=== PATIENT | male | born 1935 | race Caucasian/White ===

== ENCOUNTER 2019-11-07 10:45 | Emergency (ER) | payer OTHER ==
[~2019-11-07] VITALS: Ht 182.9 cm; Wt 68.0 kg
[~2019-11-07 10:45] MED LIST: ALTACE10 M1; CARDIZEM90 MG; CORGARD80 MG; COUMADIN7.5 MG; ZOCOR40 MG
[2019-11-07] MEDS ORDERED: SYNTHROID88 MCG PO (11:17)
[2019-11-07] MEDS ORDERED: UROXATRAL10 MG PO (11:17)
[2019-11-07] MEDS ORDERED: PROSCAR5 MG (11:17)
== END 2019-11-07 15:03 | disposition home or self-care (01) ==
LOC: ER 10:45
DX: S05.11XA Contusion of eyeball and orbital tissues, right eye, initial encounter (principal); W18.09XA Striking against other object with subsequent fall, initial encounter; Y93.89 Activity, other specified; Y92.018 Other place in single-family (private) house as the place of occurrence of the external cause; Y99.8 Other external cause status

== ENCOUNTER 2019-12-27 09:26 | Outpatient (CLI) | payer OTHER ==
[~2019-12-27 09:26] MED LIST changes: +PROSCAR5 MG; +SYNTHROID88 MCG PO; +UROXATRAL10 MG PO
== END 2019-12-27 09:34 | disposition home or self-care (01) ==
LOC: LAB 09:26
DX: I48.19 Other persistent atrial fibrillation (principal)

== ENCOUNTER 2020-01-05 08:03 | Outpatient (CLI) | payer OTHER | END 2020-01-05 08:12 | disposition home or self-care (01) | LOC: LAB 08:03 | DX: I48.0 Paroxysmal atrial fibrillation (principal) ==

== ENCOUNTER 2020-01-25 13:39 | Outpatient (CLI) | payer OTHER | END 2020-01-25 13:42 | disposition home or self-care (01) | LOC: LAB 13:39 | DX: I48.19 Other persistent atrial fibrillation (principal) ==

== ENCOUNTER → 2020-03-11 07:53 | Outpatient (CLI) | payer OTHER | END | disposition home or self-care (01) | LOC: LAB 07:53 | PROVIDERS: ATTEND Internal Medicine Cardiovascular Disease | DX: I48.19 Other persistent atrial fibrillation (principal) ==

== ENCOUNTER 2020-03-15 13:29 | Outpatient (CLI) | payer OTHER | END 2020-03-15 15:00 | disposition home or self-care (01) | LOC: LAB 13:29 | PROVIDERS: ATTEND Internal Medicine Cardiovascular Disease | DX: I48.0 Paroxysmal atrial fibrillation (principal) ==

== ENCOUNTER 2020-04-19 07:34 | Outpatient (CLI) | payer OTHER | END 2020-04-19 07:43 | disposition home or self-care (01) | LOC: NUCLEAR 07:34 | PROVIDERS: ATTEND Radiology Radiation Oncology | DX: C00.1 Malignant neoplasm of external lower lip (principal) | CPT/HCPCS: 78815; A9552 ==

== ENCOUNTER 2021-03-17 09:37 | Emergency (ER) | payer OTHER ==
[~2021-03-17] VITALS: Ht 182.9 cm; Wt 65.8 kg
[2021-03-17] MEDS ORDERED: MEDI-MECLIZINE25 MG PO (14:25)
[2021-03-22] MEDS ORDERED: TAMS0.4C (17:22)
== END 2021-03-17 14:34 | disposition home or self-care (01) ==
LOC: ER 09:37
DX: R42 Dizziness and giddiness (principal); R53.1 Weakness

== ENCOUNTER → 2021-03-22 | Emergency (ER) | payer OTHER ==
[~2021-03-22] VITALS: Ht 182.9 cm; Wt 65.8 kg
[~2021-03-22] MED LIST changes: +MEDI-MECLIZINE25 MG PO; +TAMS0.4C
== END | disposition home or self-care (01) ==
LOC: ER 17:00 → CPU-OBS 17:05
DX: I48.91 Unspecified atrial fibrillation (principal); R42 Dizziness and giddiness
CPT/HCPCS: G0378; G0379; 93005

== ENCOUNTER 2021-05-28 06:05 | Day surgery (SDC) | payer OTHER ==
[~2021-05-28 06:05] MED LIST changes: +COUMADIN PO; +DETROL2 MG PO; +LEVOXYL100 MCG PO; +PROSCAR5 MG PO; +[UNRECOGNIZED DRUG - OTHER] PO
== END 2021-05-28 20:00 | disposition home or self-care (01) ==
LOC: CIR.AMB 06:05
PROVIDERS: ATTEND Specialist
DX: K40.91 Unilateral inguinal hernia, without obstruction or gangrene, recurrent (principal); Z20.822 Contact with and (suspected) exposure to COVID-19

== ENCOUNTER 2021-06-09 09:11 | Emergency (ER) | payer OTHER ==
[~2021-06-09] VITALS: Ht 182.9 cm; Wt 66.2 kg
[2021-06-09] MEDS ORDERED: CARDIZEM60 MG PO (09:29)
== END 2021-06-09 13:26 | disposition home or self-care (01) ==
LOC: ER 09:11
DX: B34.9 Viral infection, unspecified (principal); Z03.818 Encounter for observation for suspected exposure to other biological agents ruled out

== ENCOUNTER 2022-01-03 09:16 | Emergency (ER) | payer OTHER ==
[~2022-01-03] VITALS: Ht 182.9 cm; Wt 68.0 kg
[~2022-01-03 09:16] MED LIST changes: +CARDIZEM60 MG PO
== END 2022-01-03 11:23 | disposition home or self-care (01) ==
LOC: ER 09:16
DX: H60.02 Abscess of left external ear (principal); I10 Essential (primary) hypertension

== ENCOUNTER 2022-01-17 16:22 | Emergency (ER) | payer OTHER ==
[~2022-01-17] VITALS: Ht 182.9 cm; Wt 68.0 kg
[2022-01-17] MEDS ORDERED: JANTOVEN6 MG (17:07)
[2022-01-17] MEDS ORDERED: AMOX1TAB5 (17:08)
== END 2022-01-17 18:48 | disposition home or self-care (01) ==
LOC: ER 16:22
DX: H66.92 Otitis media, unspecified, left ear (principal)

== ENCOUNTER 2022-01-21 13:59 | Emergency (ER) | payer OTHER ==
[~2022-01-21] VITALS: Ht 182.9 cm; Wt 68.0 kg
[~2022-01-21 13:59] MED LIST changes: +AMOX1TAB5; +JANTOVEN6 MG
[2022-01-21] MEDS ORDERED: CEFUROXIME250 MG PO (14:19)
== END 2022-01-21 16:58 | disposition home or self-care (01) ==
LOC: ER 13:59
DX: H60.92 Unspecified otitis externa, left ear (principal)

== ENCOUNTER 2022-01-22 16:04 | Emergency (ER) | payer OTHER ==
[~2022-01-22] VITALS: Ht 175.3 cm; Wt 63.5 kg
[~2022-01-22 16:04] MED LIST changes: +CEFUROXIME250 MG PO
== END 2022-01-22 19:28 | disposition home or self-care (01) ==
LOC: ER 16:04
DX: R42 Dizziness and giddiness (principal); H66.92 Otitis media, unspecified, left ear

== ENCOUNTER 2022-06-02 13:38 | Emergency (ER) | payer OTHER ==
[~2022-06-02] VITALS: Ht 182.9 cm; Wt 68.0 kg
== END 2022-06-02 16:38 | disposition home or self-care (01) ==
LOC: ER 13:38
DX: U07.1 COVID-19 (principal); I10 Essential (primary) hypertension

== ENCOUNTER 2023-03-24 11:53 | Outpatient (CLI) | payer OTHER | END 2023-03-24 11:59 | disposition home or self-care (01) | LOC: RAD 11:53 | DX: M25.552 Pain in left hip (principal) ==

== ENCOUNTER 2023-05-16 08:34 | Outpatient (CLI) | payer OTHER | END 2023-05-16 08:41 | disposition home or self-care (01) | LOC: RAD 08:34 | PROVIDERS: ATTEND Ophthalmology | DX: Z98.41 Cataract extraction status, right eye (principal); H25.011 Cortical age-related cataract, right eye ==

== ENCOUNTER 2023-05-16 09:41 | Outpatient (CLI) | payer OTHER | END 2023-05-16 09:44 | disposition home or self-care (01) | LOC: LAB 09:41 | PROVIDERS: ATTEND Ophthalmology | DX: D68.8 Other specified coagulation defects (principal); H25.011 Cortical age-related cataract, right eye ==

== ENCOUNTER 2023-06-09 14:20 | Emergency (ER) | payer OTHER ==
[~2023-06-09] VITALS: Ht 172.7 cm; Wt 99.8 kg
== END 2023-06-09 19:06 | disposition home or self-care (01) ==
LOC: ER 14:20
DX: S00.93XA Contusion of unspecified part of head, initial encounter (principal); W18.30XA Fall on same level, unspecified, initial encounter; Y93.9 Activity, unspecified; Y92.89 Other specified places as the place of occurrence of the external cause; Y99.9 Unspecified external cause status; E11.9 Type 2 diabetes mellitus without complications; Z79.84 Long term (current) use of oral hypoglycemic drugs; E03.9 Hypothyroidism, unspecified; I10 Essential (primary) hypertension

== ENCOUNTER 2023-10-19 13:29 | Emergency (ER) | payer OTHER ==
[~2023-10-19] VITALS: Ht 182.9 cm; Wt 59.0 kg
[2023-10-19] MEDS ORDERED: CARDIZEM60 MG PO (14:16)
[2023-10-19] MEDS ORDERED: WARFARIN SODIU7.5 MG PO (14:17)
[2023-10-19 17:06] LABS: ERYTHROCYTE SEDIMENTATION RATE 30 mm/hr
[2023-10-19 17:08] LABS: HEMATOCRIT 36.4 % (39.0-48.0); HEMOGLOBIN 12.4 g/dL (13-16.00); MEAN CELL VOLUME 88.8 fL (80.0-100.00); MEAN CORPUSCULAR HEMOGLOBIN 30.3 pg (27.00-32.0); MEAN CORPUSCULAR HGB CONC 34.1 g/dl (32.0-36.0); PLATELET COUNT 299 K/uL (150-450); RED CELL DISTRIBUTION WIDTH 14.3 % (11.5-14.5)
[2023-10-19 17:26] LABS: CALCIUM 9.9 mg/dL (8.5-10.1); CREATININE SERUM 0.84 mg/dL (0.70-1.30); GFR 86.23; POTASSIUM 4.02 mEq/L (3.5-5.1)
[2023-10-19 17:37] LABS: D DIMER 0.61 MG/L; PARTIAL THROMBOPLASTIN TIME 37.6 SECONDS (22.0-34.0)
[2023-10-19 17:38] LABS: C-REACTIVE PROTEIN 0.45 MG/DL (0.00-0.29)
[2023-10-19 17:40] LABS: INR 1.73
[2023-10-19 17:43] LABS: PROTHROMBIN TIME 17.4 SECONDS (9.0-11.5)
[2023-10-20] MEDS ORDERED: KEFLEX PO (07:46)
== END 2023-10-19 19:25 | disposition home or self-care (01) ==
LOC: ER 13:30
PROVIDERS: General Practice
DX: L03.116 Cellulitis of left lower limb (principal); L97.829 Non-pressure chronic ulcer of other part of left lower leg with unspecified severity
CPT/HCPCS: 36415; 96365; 99284; J3370

== ENCOUNTER 2023-10-20 07:17 | Emergency (ER) | payer OTHER ==
[~2023-10-20] VITALS: Ht 182.9 cm; Wt 61.2 kg
[~2023-10-20 07:17] MED LIST changes: +WARFARIN SODIU7.5 MG PO
[2023-10-20] MEDS ORDERED: KEFLEX PO (07:46)
== END 2023-10-20 14:51 | disposition home or self-care (01) ==
LOC: ER 07:17
DX: L03.116 Cellulitis of left lower limb (principal); R60.0 Localized edema; E03.9 Hypothyroidism, unspecified; I49.9 Cardiac arrhythmia, unspecified

== ENCOUNTER 2023-11-06 16:46 | Emergency (ER) | payer OTHER ==
[~2023-11-06] VITALS: Ht 182.9 cm; Wt 63.5 kg
[~2023-11-06 16:46] MED LIST changes: +KEFLEX PO
[2023-11-06] MEDS ORDERED: LEVOXYL100 MCG (17:24)
[2023-11-06] MEDS ORDERED: KETOROLAC TROMETHAMINE 30 MG VIAL IM ONE (22:15)
[2023-11-06 23:21] LABS: HEMATOCRIT 39.6 % (39.0-48.0); HEMOGLOBIN 13.1 g/dL (13-16.00); MEAN CELL VOLUME 89.1 fL (80.0-100.00); MEAN CORPUSCULAR HEMOGLOBIN 29.5 pg (27.00-32.0); MEAN CORPUSCULAR HGB CONC 33.1 g/dl (32.0-36.0); PLATELET COUNT 338 K/uL (150-450); RED BLOOD COUNT 4.45 M/uL (4.00-6.00); RED CELL DISTRIBUTION WIDTH 15.1 % (11.5-14.5)
[2023-11-06 23:45] LABS: ERYTHROCYTE SEDIMENTATION RATE 62 mm/hr
[2023-11-07] MEDS ORDERED: CEFTRIAXONE SODIUM 1,000 MG VIAL IM ONE (00:15)
== END 2023-11-07 03:57 | disposition home or self-care (01) ==
LOC: ER 16:47
PROVIDERS: Emergency Medicine
DX: M17.12 Unilateral primary osteoarthritis, left knee (principal); I10 Essential (primary) hypertension; I49.8 Other specified cardiac arrhythmias; N39.498 Other specified urinary incontinence
CPT/HCPCS: 36415; 73560; 96372; 99283; J0696; J1885